=== PATIENT | male | born 1990 | race Caucasian/White ===

== ENCOUNTER 2017-04-16 04:05 | Emergency (ER) | payer OTHER ==
[~2017-04-16] VITALS: Ht 170.2 cm; Wt 68.0 kg
[~2017-04-16 04:05] MED LIST: ALBU8.5H3 INH; ALBU8.5H5 IH; AZIT250T94 PO; FLUT12HF IH; IBUP800T25 PO; PRED20TA PO
[2017-04-16 04:08] VITALS: Ht 170.2 cm; Wt 68.0 kg
[2017-04-16] MEDS ORDERED: HYDROCODONE/APAP (5/325) TAB PO ONE (04:30)
[2017-04-16] MEDS ORDERED: DIPHTH/TET/ACEL PERTUSS (ADULT) 0.5 ML VIAL IM* ONE (04:30)
--- NOTE | 2017-04-16 04:35 | ERD ---
ER Documentation Chief Complaint Date/Time DATE: 04/16/17 TIME: 04:33 Chief Complaint laceration left pinky finger HPI 26-year-old male presents here in emergency department for any small laceration wound abrasion on the left fifth finger. Patient fell on it today, states that he landed on it, it got deformed, he put it back in place. Patient is complaining of pain throbbing pain 6/10 scale, is worse upon touching the area. Patient did not take any medications to help with symptoms. ROS All systems reviewed and are negative except as per history of present illness. Medications Home Meds Active Scripts Ibuprofen* (Motrin*) 800 Mg Tab, 800 MG PO Q6H Y for PAIN, #20 TAB Prov:KEITH SOTO 08/11/16 Albuterol Sulfate* (Proair HFA*) 8.5 Gm Hfa.aer.ad, 2 PUFF INH Q6H Y for WHEEZING AND SOB, #1 INHALER Prov:KEITH SOTO 08/11/16 Salmeterol Xinaf-Fluticasone* (Advair HFA*) 45/212 Aerosol Inhaler, 2 INH IH BID Y for WHEEZING, #1 INHALER Prov:KEITH SOTO 08/11/16 Prednisone* (Prednisone*) 20 Mg Tab, 60 MG PO DAILY for 5 Days, TAB Prov:KEITH SOTO 08/11/16 Azithromycin* (Zithromax*) 250 Mg Tablet, 250 MG PO .ZPACK DIRECTED, #6 TAB TAKE 500 MG (2 TABS) THE FIRST DAY THEN 250 MG (1 TAB) DAYS 2-5 Prov:KEITH SOTO 08/11/16 Reported Medications Albuterol Sulfate* (Albuterol Sulfate* HFA) 8.5 Gm Hfa.aer.ad, 2 PUFF IH DAILY, EA 03/06/14 Allergies Allergies: Coded Allergies: No Known Allergy (Unverified , 08/11/16) PMhx/Soc Unknown last tetanus immunization Medical and Surgical Hx: pt denies Surgical Hx History of Surgery: No Anesthesia Reaction: No Hx Neurological Disorder: No Hx Respiratory Disorders: Yes (Asthma) Hx Cardiac Disorders: No Hx Psychiatric Problems: No Hx Miscellaneous Medical Probl: No Hx Alcohol Use: Yes (socially) Hx Substance Use: Yes (marijuana ocassionally) Hx Tobacco Use: No Smoking Status: Never smoker FmHx Family History: No coronary disease, No diabetes, No other Physical Exam Vitals Vital Signs Date Time Temp Pulse Resp B/P Pulse Ox O2 Delivery O2 Flow Rate FiO2 04/16/17 04:08 97.7 97 20 145/98 100 Physical Exam GENERAL: The patient is well developed and appropriate for usual state of health, in no apparent distress. CHEST: Clear to auscultation bilaterally. There are no rales, wheezes or rhonchi. HEART: Regular rate and rhythm. No murmurs, clicks, rubs or gallops. No S3 or S4. ABDOMEN: Soft, nontender and nondistended. Good bowel sounds. No rebound or guarding. No gross peritonitis. No gross organomegaly or masses. No Roque sign or McBurney point tenderness. BACK: No midline or flank tenderness. EXTREMITIES: Equal pulses bilaterally. There is no peripheral clubbing, cyanosis or edema. No focal swelling or erythema. Full range of motion. Grossly neurovascularly intact. NEURO: Alert and oriented. Cranial nerves 2-12 intact. Motor strength in all 4 extremities with 5/5 strength. Sensation grossly intact. Normal speech and gait. SKIN: Abrasion on the left fifth finger. There is no apparent rash or petechia. The skin is warm and dry. HEMATOLOGIC AND LYMPHATIC: There is no evidence of excessive bruising or lymphedema. No gross cervical, axillary, or inguinal lymphadenopathy. Results 24 hrs Current Medications Medications (Trade) Dose Ordered Sig/Yamileth Route PRN Reason Start Time Stop Time Status Last Admin Dose Admin Diphtheria/ Tetanus/Acell Pertussis (Adacel) 0.5 ml ONCE ONCE IM* 04/16/17 04:30 04/16/17 04:31 DC 04/16/17 04:23 Acetaminophen/ Hydrocodone Bitart ([place] (5/325)) 1 tab ONCE ONCE PO 04/16/17 04:30 04/16/17 04:31 DC 04/16/17 04:22 Tdap was given to prevent tetanus. Patient tolerated medication well. Patient was given medication for pain here in emergency department, after treatment, patient verbalized feeling much better. Patient's pain is improved. PROCEDURE: LEFT FIFTH DIGIT - 3 VIEWS CLINICAL INDICATION: 26-year-old male with trauma to the left fifth digit. TECHNIQUE: AP, lateral and oblique views of the left digit were obtained. The images reviewed on a PACS workstation. COMPARISON: None. FINDINGS: The bones of the fifth digit appear intact, with no evidence of fracture, dislocation, or subluxation. The joint spaces are preserved. Bone mineralization is within normal limits. No radiopaque foreign body is seen. IMPRESSION: Unremarkable left fifth digit radiographs. .Jefferson Lux MD, Date Time Electronically viewed and signed by .Jefferson Lux MD, on 04/16/2017 05:14 .M/ CC: COBY TORRES TESTING COORDINATOR Procedures/MDM Medical Decision Making: Patient's pain is most likely consistent with a contusion on affected area with a skin abrasion. There is no suspicion for neurovascular compromise. Patient has intact sensation and circulation of the affected extremity. There is low suspicion for septic arthritis. Patient does not have any fever. Radiology exams of the affected area does not show any fracture or dislocation. Disposition: Home. Patient is given prescription for ibuprofen for mild to moderate pain, [place] for severe pain, Keflex to prevent infection. Patient was advised to elevate the affected area and apply ice on affected area. Patient was advised that if symptoms are worse, numbness, tingling, high fever, unable to move joint, worsening symptoms, to return to emergency department immediately. Otherwise, patient is advised to follow up with the primary care doctor in 5-7 days for reevaluation of symptoms. Departure Diagnosis: Primary Impression: Skin abrasion Additional Impression: Finger contusion Encounter type: initial encounter Finger: little finger Damage to nail status: without damage Laterality: left Qualified Code: S60.052A - Contusion of left little finger without damage to nail, initial encounter Condition: Stable Patient Instructions: Abrasion, Finger Contusion Additional Instructions: Patient is given prescription for ibuprofen for mild to moderate pain, [place] for severe pain, Keflex to prevent infection. Patient was advised to elevate the affected area and apply ice on affected area. Patient was advised that if symptoms are worse, numbness, tingling, high fever, unable to move joint, worsening symptoms, to return to emergency department immediately. Otherwise, patient is advised to follow up with the primary care doctor in 5-7 days for reevaluation of symptoms. COBY TORRES NP Apr 16, 2017 04:35
--- NOTE | 2017-04-16 05:14 | RADRPT ---
PROCEDURE: LEFT FIFTH DIGIT - 3 VIEWS CLINICAL INDICATION: 26-year-old male with trauma to the left fifth digit. TECHNIQUE: AP, lateral and oblique views of the left digit were obtained. The images reviewed on a PACS workstation. COMPARISON: None. FINDINGS: The bones of the fifth digit appear intact, with no evidence of fracture, dislocation, or subluxatio n. The joint spaces are preserved. Bone mineralization is within normal limits. No radiopaque foreig n body is seen. IMPRESSION: Unremarkable left fifth digit radiographs. .Jefferson Lux MD, MD Date Time Electronically viewed and signed by .Jefferson Lux MD, on 04/16/2017 05:14 .M/
[2017-04-16] MEDS ORDERED: CEPH-443 PO (05:19)
[2017-04-16] MEDS ORDERED: IBUP-1542 PO (05:19)
[2017-04-16] MEDS ORDERED: HYDR-906 PO (05:19)
== END 2017-04-16 05:30 | disposition home or self-care (01) ==
LOC: FTE 04:05
DX: S60.052A Contusion of left little finger without damage to nail, initial encounter (principal); J45.909 Unspecified asthma, uncomplicated; W18.39XA Other fall on same level, initial encounter; Y92.9 Unspecified place or not applicable; Z23 Encounter for immunization
CPT/HCPCS: 73140; 90471; 90715; Z7502; Z7610